=== PATIENT | female | born 1970 | race Caucasian/White ===

== ENCOUNTER 2017-11-01 22:32 | Emergency (ER) | payer BC ==
[~2017-11-01] VITALS: Ht 162.6 cm; Wt 104.3 kg
[2017-11-01] MEDS ORDERED: IBUPROFEN 400 MG TAB PO ONE (22:45)
[2017-11-01] MEDS ORDERED: IBUPROFEN 600 MG TAB PO ONE ×2 (22:46→23:00)
[2017-11-02 01:25] LABS: Basophils # (auto) 0.1 uL; Basophils % (auto) 0.4 % (0.0-2.0); Eosinophils # (auto) 0.1 uL; Eosinophils % (auto) 0.7 % (0.0-7.0); Hematocrit 40.5 % (41.0-53.0); Hemoglobin 13.5 g/dL (13.5-17.5); Lymphocytes # (auto) 1.2 uL; Lymphocytes % (auto) 5.9 % (10.0-50.0); Mean Corpuscular Hemoglobin 28.7 pg (28.0-32.0); Mean Corpuscular Hgb Conc. 33.4 g/dL (32.0-36.0); Monocytes # (auto) 1.1 uL; Monocytes % (auto) 5.2 % (0.0-12.0); Neutrophils # (auto) 17.6 uL; Neutrophils % (auto) 87.8 % (37.0-80.0); Platelet Count (auto) 403 10^3/uL (140-450); Red Blood Cells 4.71 10^6/uL (4.5-5.90); Red Cell Distribution Width 15.9 % (11.8-14.3); White Blood Cell 20.1 10^3/uL (4.4-10.8)
[2017-11-02 01:38] LABS: Albumin 3.3 g/dL (3.4-5.0); Calcium 8.3 mg/dL (8.5-10.1); Potassium 3.4 mmol/L (3.5-5.1)
[2017-11-02 01:41] LABS: BUN/Creatinine Ratio 7.7
[2017-11-02 01:42] LABS: Bilirubin, Total 0.7 mg/dL (0.2-1.0); Total Protein 7.5 g/dL (6.4-8.2)
[2017-11-02 04:13] VITALS: BP 144/81
[2017-11-02] MEDS ORDERED: cefTRIAXone SOD 1,000 MG VL IM ONE (04:15)
== END 2017-11-02 04:55 | disposition home or self-care (01) ==
LOC: EDSEX 22:39 → ER 22:39
DX: J02.9 Acute pharyngitis, unspecified (principal); D72.829 Elevated white blood cell count, unspecified
CPT/HCPCS: 36415; 71046; 80053; 85025; 96372; 99285; J0696